=== PATIENT | female | born 1960 | race Caucasian/White ===

== ENCOUNTER 2021-11-25 06:00 | Day surgery (SDC) | payer BC ==
[2021-11-25] MEDS ORDERED: fentaNYL 100 MCG/2 ML SDV ONE (14:23)
[2021-11-25] MEDS ORDERED: Propofol 200 MG/20 ML SDV ONE (14:23)
[2021-11-25] MEDS ORDERED: Lidocaine 2% 5 ML SDV ONE (14:23)
[2021-11-25] MEDS ORDERED: Lactated Ringers 1,000 ML IV ONE (14:45)
== END 2021-11-25 16:15 ==
LOC: MW.SDS 06:00
PROVIDERS: ATTEND Surgery
DX: R19.4 Change in bowel habit (principal); K31.7 Polyp of stomach and duodenum; Z88.0 Allergy status to penicillin; K21.9 Gastro-esophageal reflux disease without esophagitis; Z98.890 Other specified postprocedural states
CPT/HCPCS: 43239; 45380; J2704; J3010; J7120; 00813